=== PATIENT | male | born 1960 | race Caucasian/White ===

== ENCOUNTER 2021-04-03 11:03 | Emergency (ER) | payer MEDICARE, SELFPAY ==
[2021-04-03 11:38] VITALS: BP 167/105; PULSE 84; RESP 18; TEMP 36; O2SAT 95; BMI 30.9
--- NOTE | 2021-04-03 12:01 | W.ED.WOUNDLC ---
HPI - Wound/Laceration General: Chief Complaint: Wound/Laceration Stated Complaint: LEFT HAND INJURY Time Seen by Provider: 04/03/21 11:48 History of Present Illness: HPI narrative: Patient is a 61-year-old male comes to the ED with a laceration to left thumb. Injury occurred just prior to arrival. Patient says he was using a saw in his wood shop and accidentally cut his left thumb. He irrigated out laceration and was able to control bleeding. Patient is not up-to-date on tetanus. Associated symptoms: Denies chills, fever(s), nausea or vomiting Review of Systems Const: Denies: fever(s), chills or fatigue Eyes: Denies: change in vision or eye discomfort ENMT: Denies: throat pain, odynophagia, nasal discharge or nasal congestion Card: Denies: chest pain, palpitations, edema, swelling of feet/ankles, dyspnea on exertion or orthopnea Resp: Denies: dyspnea, productive cough or non-productive cough GI: Denies: abdominal pain, nausea, vomiting, diarrhea, constipation or hematochezia : Denies: flank pain, difficulty urinating, dysuria or hematuria Musc: Denies: neck pain, back pain or extremity swelling Skin/Breast: Reports: new lesions (Laceration to left thumb); Denies: rash Neuro: Denies: headache(s), numbness in extremities or weakness in extremities Physical Exam Const: COMMON NORMALS: no acute distress, patient oriented x3 and alert GENERAL APPEARANCE: cooperative and comfortable HENMT: COMMON NORMALS: normocephalic HEAD & SCALP: normocephalic MOUTH: Normal oral and palatal mucosa present THROAT: posterior oropharynx normal and uvula midline Neck/C-Spine: COMMON NORMALS: supple GENERAL: Yes normal visual inspection Resp: COMMON NORMALS: normal respiratory effort, No retractions, No use of accessory muscles and clear to auscultation bilaterally AUSCULTATION: clear to auscultation bilaterally Cardio: COMMON NORMALS: regular rate, regular rhythm, S1 normal heart sound present, S2 normal heart sound present, No gallops present (Cardio), No clicks present (Cardio), No murmurs present (Cardio) and Peripheral pulses 2+ throughout RATE: regular rate RHYTHM: regular rhythm HEART SOUNDS: S1 normal heart sound present and S2 normal heart sound present PERIPHERAL PULSES: Peripheral pulses 2+ throughout GI: COMMON NORMALS: Normal to inspection, nondistended, normoactive bowel sounds present, Soft to palpation, non-tender and no masses PALPATION: Yes Soft to palpation : COMMON NORMALS: Yes no CVA tenderness BLADDER/KIDNEY EXAM: Yes no CVA tenderness Back/Pelvis: COMMON NORMALS: no CVA tenderness Extremity: NARRATIVE EXTREMITY EXAM: Left hand?thumb. Patient had area of thumb has a linear approximately 2 cm superficial laceration. No active bleeding, foreign body or contaminants seen. Laceration does not involve nailbed or nail. Patient has full range of motion of the thumb and neurovascular intact. GENERAL: Yes normal exam except as noted Neuro: COMMON NORMALS: patient oriented x3 and moves all extremities SENSORIUM/ORIENTATION: Yes alert Skin: NARRATIVE SKIN EXAM: Left hand?thumb. Patient had area of thumb has a linear approximately 2 cm superficial laceration. No active bleeding, foreign body or contaminants seen. Laceration does not involve nailbed or nail. Patient has full range of motion of the thumb. GENERAL SKIN EXAM: dry skin Procedures Laceration Laceration 1: Site: hand (thumb) Side (If applicable): left Size (cm): 2 Description: linear and clean Depth: simple, single layer Local Anesthetic: lidocaine 1% Amount of anesthesia used (mL): 10 Pre-repair: irrigated extensively (With normal saline and iodine wash.) Skin layer closed with: nylon Size (cm): 4-0 Number of sutures: 7 Technique: simple, interrupted (1) and running (6) Nerve Block Nerve Block 1: Time out performed: Yes Local Anesthetic: lidocaine 1% Amount of anesthesia used (mL): 10 Side: left Nerve Blocks: digital (first digit) Procedure Successful: Yes Patient Tolerated Procedure: well Complications: none Course Vital Signs: Vital signs: Vital Signs Temperature 96.8 F L 04/03/21 11:38 Pulse Rate 67 04/03/21 13:31 Respiratory Rate 18 04/03/21 13:31 Blood Pressure 147/87 04/03/21 13:31 Pulse Oximetry 99 04/03/21 13:31 MDM - Wound/Laceration MDM Narrative: Medical decision making narrative: Patient is a 61-year-old male who comes to the ED with laceration to left thumb. Exam shows a 2 cm linear laceration to left thumb that does not involve nail bed or nail. No active bleeding, foreign bodies or contaminants seen. Patient has full range of motion in thumb is neurovascularly intact. X-ray showed no fractures. The nurse irrigated the laceration with normal saline and iodine wash. I used a digital block then closed laceration with 7 sutures. Nurse then cleaned and bandaged left thumb. Patient was given updated tetanus as well. He was discharged home with a prescription for cephalexin as prophylactic treatment. He was told to have sutures removed in 7 to 10 days instructed on wound how to care for laceration site. Return to ED precautions given. Patient understood and agree with plan. Imaging Data^: Xray Ortho: Attestation: I personally reviewed and interpreted this imaging study as follows: Radiologist's impression: [facility], [place] [address]KYhu ReportSigned Patient: Teja Ackerman #: [id number]: 8Acct#:[id number]/Sex: 61 / MADM Date: 04/03/21Loc: [facility] [place]/Bed:Attending Dr: Ordering Provider/Ordering MD: Julio Negrete Date of Service: 04/03/21 Procedure(s): XR hand LT min 3V* [id number] Accession Number(s): [id number] Report Number: [id number] PROCEDURE INFORMATION: Exam: XR Left Hand Exam date and time: 04/03/2021 12:00 PM Age: 61 years old Clinical indication: Injury or trauma; Other: Cut thumb; Laceration; Finger; Left; Additional info: Thumb laceration TECHNIQUE: Imaging protocol: XR Left hand. Views: 3 or more views. Total images: 3 COMPARISON: No relevant prior studies available. FINDINGS: Bones/joints: No acute fracture nor subluxation. No osseous erosion nor periosteal reaction. Soft tissues: Soft tissue irregularity is noted to the tip of the thumb. XR/XR hand LT min 3V* [id number] IMPRESSION: 1. Soft tissue irregularity is noted to the tip of the thumb. 2. No acute osseous pathology. Dictated By:Tyson Kang MDSigned By:Tyson Kang MDSigned Date/Time:04/03/21 1436DD/ 1435 Discharge Plan Discharge Patient Disposition: Home Clinical Impression: Laceration Condition: Stable Prescriptions: New cephalexin 500 mg capsule 500 mg PO Q6H 4 Days Qty: 16 RF: 0 Discharge Orders: Discharge ED (Routine); Ordered 04/03/21 Ordered By: Julio Negrete Referrals: Jeff Paez MD [Primary Care Provider] - Discharge Diet: Regular Discharge Activity: Limit activity as instructed Patient Instructions: Suture Care (ED), Finger Laceration (ED) Activity Restrictions/Additional Instructions: Take full course of antibiotics as prescribed. Keep laceration site clean and dry for the next 48 hours. Then after that you can clean and re-bandage daily. Watch for signs of infection such as redness, warmth, increased tenderness and puslike drainage. If you see the signs of infection return to the ED, urgent care or PCP for reevaluation. call your PCP to schedule a follow-up appointment for reevaluation and suture removal in about 7- 10 days. Continue taking all home meds. Follow discharge plans as discussed. You can return to the ED if symptoms worsen. Coding Level of Care Code ED Supervisor [employer] for Aysha Ocampo Exam Comprehensive
[2021-04-03] MEDS: tetanus-dipt-pertussis 0.5 mL SDV IM (12:54)
[2021-04-03] MEDS: lidocaine 1% INJ 20 mL INJECTION (12:56)
[2021-04-03 13:31] VITALS: BP 147/87; PULSE 67; RESP 18; O2SAT 99
== END 2021-04-03 13:37 | disposition home or self-care (01) ==
PROVIDERS: Emergency Provider Physician Assistant; PCP Family Medicine
DX: S61.012A Laceration without foreign body of left thumb without damage to nail, initial encounter (principal); W27.0XXA Contact with workbench tool, initial encounter; Z23 Encounter for immunization
CPT/HCPCS: 12001; 73130; 90471; 90715; 99282; A6446